=== PATIENT | female | born 1940 | race Hispanic/Latino ===

== ENCOUNTER → 2024-05-03 | Outpatient (CLI) | payer MEDICARE | END | disposition home or self-care (01) | LOC: RAH 12:56 | PROVIDERS: ATTEND Psychiatry & Neurology Neurology | DX: F03.90 Unspecified dementia, unspecified severity, without behavioral disturbance, psychotic disturbance, mood disturbance, and anxiety (principal) | CPT/HCPCS: 70450 ==